=== PATIENT | male | born 1965 | race Caucasian/White ===

== ENCOUNTER 2017-11-04 09:17 | Emergency (ER) | payer BC ==
[2017-11-04] MEDS ORDERED: cefTRIAXone 2 GM in Sodium Chloride 0.9% 100 ML IV ONE ×2 (09:56→10:15)
[2017-11-04] MEDS ORDERED: Sodium Chloride 0.9% 1,000 ML IV ONE ×2 (09:56→15:46)
--- NOTE | 2017-11-04 09:57 | EDM.PDOC ---
ED HPI GENERAL MEDICAL PROBLEM - General Chief Complaint: Genitourinary Problem Stated Complaint: GROIN PAIN Time Seen by Provider: 11/04/17 09:43 Source of Information: Reports: Patient History Limitations: Reports: No Limitations - History of Present Illness INITIAL COMMENTS - FREE TEXT/NARRATIVE: 52 y/o M presents with genitourinary complaint. States he's had some difficulty initiating urinary stream for a while. Yesterday, had injury in which a jaspal hit his groin area. States pain was not severe and he didn't think much of the injury at that time. However, later that day, he noticed that he had difficulty urinating. It takes him around 10 minutes to empty his bladder. He also has had some leakage of fluid from the penis, which he states is liquid and bhatti in color. He also has had increasing pain to his genital and groin area. Penis is inflammed and swollen. He also has some lower abdominal discomfort. Pain has worsened since yesterday. He also fills mildly ill - feels weak and dizzy. No complaint of fever at home (but febrile here at triage). Denies vomiting/ diarrhea, cough, chest pain, SOB or recent illness. Sexually active with 1 female partner x years, she has no symptoms, no additional recent sexual encounters. Groin Pain Score (Numeric/FACES): 9 - Related Data Allergies Allergy/AdvReac Type Severity Reaction Status Date / Time No Known Allergies Allergy Verified 02/21/16 11:22 CDT Home Meds: Home Meds . [No Known Home Meds] 11/04/17 [History] Past Medical History Cardiovascular History: Reports: None - Past Surgical History GI Surgical History: Reports: Cholecystectomy Musculoskeletal Surgical History: Reports: Amputation, Other (See Below) Other Musculoskeletal Surgeries/Procedures:: knee surgery Social & Family History - Family History Family Medical History: Noncontributory - Tobacco Use Smoking Status *Q: Never Smoker - Caffeine Use Caffeine Use: Reports: None - Recreational Drug Use Recreational Drug Use: No ED ROS GENERAL - Review of Systems Review Of Systems: See Below Constitutional: Reports: Chills, Malaise, Weakness, Fatigue HEENT: Reports: No Symptoms Respiratory: Denies: Shortness of Breath Cardiovascular: Denies: Chest Pain Endocrine: Reports: No Symptoms GI/Abdominal: Denies: Vomiting : Reports: Discharge, Dysuria, Urinary Retention. Denies: Hematuria Musculoskeletal: Reports: No Symptoms Skin: Reports: No Symptoms Neurological: Reports: No Symptoms Psychiatric: Reports: No Symptoms Hematologic/Lymphatic: Reports: No Symptoms Immunologic: Reports: No Symptoms ED EXAM, RENAL/ - Physical Exam Exam: See Below Exam Limited By: No Limitations General Appearance: Alert, WD/WN, No Apparent Distress Eye Exam: Bilateral Eye: Normal Inspection Ears: Normal External Exam Nose: Normal Inspection Throat/Mouth: Normal Inspection, Normal Oropharynx, Normal Voice, No Airway Compromise Head: Atraumatic, Normocephalic Neck: Normal Inspection, Supple, Non-Tender, Full Range of Motion Respiratory/Chest: No Respiratory Distress, Lungs Clear, Normal Breath Sounds Cardiovascular: Normal Peripheral Pulses, Regular Rate, Rhythm, No Edema, No Murmur GI/Abdominal: Soft, Other (+suprapubic TTP) (Male) Exam: Circumcised, Other (Entire shaft of the penis is red, erythematous, very tender, mildly swollen, unable to express any discharge at this time, no scrotal TTP or swelling). No: Scrotal Swelling, Scrotum Tenderness (L), Scrotum Tenderness (R), Testicular Mass, Urethral Discharge Course - Vital Signs Last Recorded V/S: Last Vital Signs Temp 39.6 C H 11/04/17 13:52 Pulse 105 H 11/04/17 09:25 Resp 18 11/04/17 09:25 BP 157/107 H 11/04/17 09:25 Pulse Ox 94 L 11/04/17 09:25 - Orders/Labs/Meds Orders: Active Orders 24 hr Category Date Time Status CULTURE BLOOD [BC] Stat Lab 11/04/17 10:30 Received CULTURE BLOOD [BC] Stat Lab 11/04/17 10:35 Received CULTURE URINE [RM] Stat Lab 11/04/17 14:18 Received UA W/MICROSCOPIC [URIN] Stat Lab 11/04/17 10:00 Ordered Sodium Chloride 0.9% [Saline Flush] Med 11/04/17 12:54 Active 10 ml FLUSH ONETIME PRN Blood Culture x2 Reflex Set [OM.PC] Stat Oth 11/04/17 09:55 Ordered Medication Orders Sodium Chloride (Saline Flush) 10 ml FLUSH ONETIME PRN PRN Reason: IV FLUSH Last Admin: 11/04/17 13:05 Dose: 10 ml Labs: Laboratory Tests 11/04/17 11/04/17 11/04/17 Range/Units 09:40 09:40 09:56 WBC 13.46 H (4.23-9.07) K/mm3 RBC 5.77 (4.63-6.08) M/mm3 Hgb 16.8 (13.7-17.5) gm/L Hct 49.8 (40.1-51.0) % MCV 86.3 (79.0-92.2) fl MCH 29.1 (25.7-32.2) pg MCHC 33.7 (32.2-35.5) g/dl RDW Std Deviation 41.7 (35.1-43.9) fL Plt Count 151 L (163-337) K/mm3 MPV 11.1 (9.4-12.3) fl Neut % (Auto) 84.2 H (34.0-67.9) % Lymph % (Auto) 7.7 L (21.8-53.1) % [place] % (Auto) 7.4 (5.3-12.2) % Eos % (Auto) 0.1 L (0.8-7.0) Baso % (Auto) 0.5 (0.1-1.2) % Neut # (Auto) 11.32 H (1.78-5.38) K/mm3 Lymph # (Auto) 1.04 L (1.32-3.57) K/mm3 [place] # (Auto) 0.99 H (0.30-0.82) K/mm3 Eos # (Auto) 0.02 L (0.04-0.54) K/mm3 Baso # (Auto) 0.07 (0.01-0.08) K/mm3 Manual Slide Review Abnormal smear Sodium 137 (136-145) mEq/L Potassium 4.2 (3.5-5.1) mEq/L Chloride 103 (98-107) mEq/L Carbon Dioxide 23 (21-32) mEq/L Anion Gap 15.2 H (5-15) BUN 15 (7-18) mg/dL Creatinine 1.4 H (0.7-1.3) mg/dL Est Cr Clr Drug Dosing 62.28 mL/min Estimated GFR (MDRD) 53 (>60) mL/min BUN/Creatinine Ratio 10.7 L (14-18) Glucose 112 H (74-106) mg/dL Lactic Acid (0.4-2.0) mmol/L Calcium 9.0 (8.5-10.1) mg/dL Total Bilirubin 0.8 (0.2-1.0) mg/dL AST 29 (15-37) U/L ALT 49 (16-63) U/L Alkaline Phosphatase 83 (46-116) U/L Total Protein 8.3 H (6.4-8.2) g/dl Albumin 4.2 (3.4-5.0) g/dl Globulin 4.1 gm/dL Albumin/Globulin Ratio 1.0 (1-2) Urine Color (Yellow) Urine Appearance (Clear) Urine pH (5.0-8.0) Ur Specific [place] (1.005-1.030) Urine Protein (Negative) Urine Glucose (UA) (Negative) Urine Ketones (Negative) Urine Occult Blood (Negative) Urine Nitrite (Negative) Urine Bilirubin (Negative) Urine Urobilinogen (0.2-1.0) Ur Leukocyte Esterase (Negative) Urine RBC (0-5) /hpf Urine WBC (0-5) /hpf Ur Epithelial Cells (0-5) /hpf Urine Bacteria (FEW) /hpf Urine Mucus (FEW) /hpf C trachomatis DNA (PCR) Not detected N gonorrhoeae DNA (PCR) Not detected 11/04/17 11/04/17 Range/Units 10:00 10:30 WBC (4.23-9.07) K/mm3 RBC (4.63-6.08) M/mm3 Hgb (13.7-17.5) gm/L Hct (40.1-51.0) % MCV (79.0-92.2) fl MCH (25.7-32.2) pg MCHC (32.2-35.5) g/dl RDW Std Deviation (35.1-43.9) fL Plt Count (163-337) K/mm3 MPV (9.4-12.3) fl Neut % (Auto) (34.0-67.9) % Lymph % (Auto) (21.8-53.1) % [place] % (Auto) (5.3-12.2) % Eos % (Auto) (0.8-7.0) Baso % (Auto) (0.1-1.2) % Neut # (Auto) (1.78-5.38) K/mm3 Lymph # (Auto) (1.32-3.57) K/mm3 [place] # (Auto) (0.30-0.82) K/mm3 Eos # (Auto) (0.04-0.54) K/mm3 Baso # (Auto) (0.01-0.08) K/mm3 Manual Slide Review Sodium (136-145) mEq/L Potassium (3.5-5.1) mEq/L Chloride (98-107) mEq/L Carbon Dioxide (21-32) mEq/L Anion Gap (5-15) BUN (7-18) mg/dL Creatinine (0.7-1.3) mg/dL Est Cr Clr Drug Dosing mL/min Estimated GFR (MDRD) (>60) mL/min BUN/Creatinine Ratio (14-18) Glucose (74-106) mg/dL Lactic Acid 1.9 (0.4-2.0) mmol/L Calcium (8.5-10.1) mg/dL Total Bilirubin (0.2-1.0) mg/dL AST (15-37) U/L ALT (16-63) U/L Alkaline Phosphatase (46-116) U/L Total Protein (6.4-8.2) g/dl Albumin (3.4-5.0) g/dl Globulin gm/dL Albumin/Globulin Ratio (1-2) Urine Color Yellow (Yellow) Urine Appearance Clear (Clear) Urine pH 5.5 (5.0-8.0) Ur Specific [place] 1.025 (1.005-1.030) Urine Protein Negative (Negative) Urine Glucose (UA) Negative (Negative) Urine Ketones Negative (Negative) Urine Occult Blood Negative (Negative) Urine Nitrite Negative (Negative) Urine Bilirubin Negative (Negative) Urine Urobilinogen 0.2 (0.2-1.0) Ur Leukocyte Esterase 1+ H (Negative) Urine RBC 0-5 (0-5) /hpf Urine WBC 0-5 (0-5) /hpf Ur Epithelial Cells 0-5 (0-5) /hpf Urine Bacteria Not seen (FEW) /hpf Urine Mucus Not seen (FEW) /hpf C trachomatis DNA (PCR) N gonorrhoeae DNA (PCR) Meds: Medications Generic Name Dose Route Start Last Admin Trade Name Freq PRN Reason Stop Dose Admin Sodium Chloride 10 ml 11/04/17 12:54 11/04/17 13:05 Saline Flush FLUSH 10 ml ONETIME PRN Administration IV FLUSH Discontinued Medications Generic Name Dose Route Start Last Admin Trade Name Freq PRN Reason Stop Dose Admin Acetaminophen 650 mg 11/04/17 13:49 11/04/17 13:52 Tylenol PO 11/04/17 13:50 650 mg NOW ONE Administration Sodium Chloride 1,000 mls @ 1,000 mls/hr 11/04/17 09:56 11/04/17 10:40 Normal Saline IV 11/04/17 10:55 1,000 mls/hr ONETIME ONE Administration Ceftriaxone Sodium 2 gm/ 100 mls @ 200 mls/hr 11/04/17 10:15 11/04/17 10:42 Sodium Chloride IV 11/04/17 10:44 200 mls/hr ONETIME ONE Administration Piperacillin Sod/Tazobactam 100 mls @ 200 mls/hr 11/04/17 10:54 11/04/17 11: 55 Sod 4.5 gm/ Sodium Chloride IV 11/04/17 11:23 200 mls/hr ONETIME ONE Administration Iopamidol 100 ml 11/04/17 12:54 11/04/17 13:05 Isovue-300 (61%) IVPUSH 11/04/17 12:55 100 ml ONETIME ONE Administration - Re-Assessments/Exams Free Text/Narrative Re-Assessment/Exam: 11/04/17 14:19 Labs show elevated WBC at 13. He is febrile and tachycardic, meets sepsis criteria. I initially gave ceftriaxone, then added zosyn due to concern for possible deep infection to get better anaerobic coverage. His exam shows isolated penile swelling/TTP. U/S shows mild amount of edema within the penile soft tissues, no abscess or hematoma. Testicular ultrasound is unremarkable. CT a/p with contrast shows mild haziness within the subcutaneous fat in the L inguinal region presumably due to soft tissue contusion. Thickening of the subcutaneous tissues within the penis most likely due to edema. [facility] urologist called at 14:20 for advice. 11/04/17 14:[address] Pozo, urologist who agrees that patient should be admitted for IV antibiotics at a facility that has urology consultation available. Discussed with hospitalist who accepts the patient for admission. Departure - Departure Time of Disposition: 14:32 Disposition: DC/Tfer to [facility] 02 Clinical Impression: Sepsis affecting skin, Infection of penis - Discharge Information Referrals: PCP,None [Primary Care Provider] - Forms: ED Department Discharge Additional Instructions: 1. Go directly to [facility] in [place] for admission. - My Orders Last 24 Hours: My Active Orders 11/04/17 09:55 Blood Culture x2 Reflex Set [OM.PC] Stat 11/04/17 10:00 UA W/MICROSCOPIC [URIN] Stat 11/04/17 10:30 CULTURE BLOOD [BC] Stat 11/04/17 10:35 CULTURE BLOOD [BC] Stat 11/04/17 12:54 Sodium Chloride 0.9% [Saline Flush] 10 ml FLUSH ONETIME PRN 11/04/17 14:18 CULTURE URINE [RM] Stat - Assessment/Plan Last 24 Hours: My Active Orders 11/04/17 09:55 Blood Culture x2 Reflex Set [OM.PC] Stat 11/04/17 10:00 UA W/MICROSCOPIC [URIN] Stat 11/04/17 10:30 CULTURE BLOOD [BC] Stat 11/04/17 10:35 CULTURE BLOOD [BC] Stat 11/04/17 12:54 Sodium Chloride 0.9% [Saline Flush] 10 ml FLUSH ONETIME PRN 11/04/17 14:18 CULTURE URINE [RM] Stat
[2017-11-04] MEDS ORDERED: Piperacillin/Tazobactam 4.5 GM in Sodium Chloride 0.9% 100 ML IV ONE (10:54)
[2017-11-04 12:21] LABS: C. TRACHOMATIS BY PCR NOT DETECTED; N. GONORRHOEAE BY PCR NOT DETECTED
--- NOTE | 2017-11-04 12:36 | US ---
Testicular ultrasound: Multiple real-time images of the testicles were obtained. Testicles have a homogeneous ultrasound appearance. Both arterial and venous blood flow are seen within the testicles. No intratesticular abnormality is seen. Small bilateral hydroceles are noted. Left epididymal cyst is seen measuring 3.4 mm. Small lymph nodes are seen within the left inguinal region which appear normal. No focal fluid collections are seen within the visualized penile tissues to indicate abscess or hematoma. There is a mild amount of soft tissue edema being seen within the penis. Impression: 1. Mild amount of edema within the penile soft tissues. Nothing is seen to indicate abscess or hematoma. 2. Small hydroceles and small left epididymal cyst. 3. Testicular ultrasound is otherwise unremarkable. Diagnostic code #3
[2017-11-04] MEDS ORDERED: Sodium Chloride 0.9% 10 ML Syringe FLUSH PRN (12:54)
[2017-11-04] MEDS ORDERED: Iopamidol 612 MG/ML 100 ML Bottle IVPUSH ONE (12:54)
[2017-11-04] MEDS ORDERED: Acetaminophen 325 MG Tab PO ONE (13:49)
--- NOTE | 2017-11-04 14:13 | CT ---
CT abdomen and pelvis Technique: Multiple axial sections were obtained from the top the liver inferiorly through the pubic symphysis. Intravenous contrast was utilized. No oral contrast has been given. Delayed images were obtained from below the kidneys inferiorly through the pubic symphysis. Findings: Mild increased density within the subcutaneous fat is seen within the left inguinal region compatible with minimal contusion. No fluid collections are seen within the left inguinal region. No soft tissue air or other abnormality seen within the perineum or inguinal regions. There appears to be soft tissue thickening within the superficial soft tissues of the penis presumably due to edema. Visualized lung bases shows nothing acute. Liver shows no focal parenchymal abnormality. Spleen appears within normal limits. Adrenal glands contain no nodule. Kidneys show no hydronephrosis or mass. Surgical clips are seen from prior cholecystectomy. Pancreas appears normal. Aorta shows no aneurysmal dilatation. No retroperitoneal adenopathy or mesenteric abnormalities are seen. No pelvic mass or adenopathy is seen. No free fluid or inflammatory changes seen. Appendix is seen which is normal. Delayed images shows contrast within ureters and bladder. Prostate gland minimally enlarged. Bone window settings were reviewed which shows mild scattered degenerative change within the spine. Nothing acute is seen. Impression: 1. Mild haziness within the subcutaneous fat within the left inguinal region presumably due to soft tissue contusion. Thickening of the subcutaneous tissues within the penis most likely due to edema. 2. No additional abnormality is seen on CT study of the abdomen and pelvis. Diagnostic code #2
[2017-11-04 15:30] VITALS: BP 127/87
== END 2017-11-04 16:00 ==
LOC: JD.ED 09:17
DX: A41.9 Sepsis, unspecified organism (principal); N48.29 Other inflammatory disorders of penis
CPT/HCPCS: 36415; 51798; 74177; 76870; 80053; 81001; 83605; 85025; 87040; 87086; 87491; 87591; 93975; 96365; 96367; 99285; A9270; J0696; J2543; J7030; J7040; J7050; Q9967; 99284

== ENCOUNTER 2020-04-10 12:05 | Emergency (ER) | payer BC ==
[2020-04-10] MEDS ORDERED: Famotidine 20 MG/2 ML SDV IVPUSH ONE (12:15)
[2020-04-10] MEDS ORDERED: Sodium Chloride 0.9% 10 ML Syringe FLUSH PRN (12:15)
[2020-04-10] MEDS ORDERED: methylPREDNISolone Sodium Succinate 125 MG/2 ML SDV IVPUSH ONE (12:15)
[2020-04-10 12:20] VITALS: BP 138/97
[2020-04-10 13:00] VITALS: PULSE 71
--- NOTE | 2020-04-10 13:44 | EDM.PDOC ---
ED HPI GENERAL MEDICAL PROBLEM - General Chief Complaint: Allergic Reaction Stated Complaint: THROAT SWELLING Time Seen by Provider: 04/10/20 12:14 Source of Information: Reports: Patient History Limitations: Reports: No Limitations - History of Present Illness INITIAL COMMENTS - FREE TEXT/NARRATIVE: The patient presents with throat pain and swelling. This started yesterday and today it is worse. He got some chlorseptic spray and tried that a couple times. This made things worse. He has swelling of his tongue now. He does not take any medication such as an KHALIDA inhibitor. He has some trouble talking with the swelling. He has no fever, chills, cough, congestion, runny nose, chest pain, abdominal pain, nausea or vomiting. Onset: Gradual Duration: Day(s): Location: Reports: Face Severity: Moderate Improves with: Reports: None Worsens with: Reports: None Associated Symptoms: Reports: Shortness of Breath. Denies: Chest Pain, Cough, Fever/Chills, Headaches, Nausea/Vomiting - Related Data Allergies Allergy/AdvReac Type Severity Reaction Status Date / Time phenol [From Chloraseptic] Allergy Airway Verified 04/10/20 12:20 Tightness Home Meds: Home Meds predniSONE [Prednisone] 40 mg PO DAILY #10 tablet 04/10/20 [Rx] Past Medical History Cardiovascular History: Reports: None - Past Surgical History GI Surgical History: Reports: Cholecystectomy Musculoskeletal Surgical History: Reports: Amputation, Other (See Below) Other Musculoskeletal Surgeries/Procedures:: knee surgery Social & Family History - Family History Family Medical History: No Pertinent Family History - Tobacco Use Tobacco Use Status *Q: Never Tobacco User - Caffeine Use Caffeine Use: Reports: Coffee, Energy Drinks - Recreational Drug Use Recreational Drug Use: No ED ROS ALLERGIC REACTION - Review of Systems Review Of Systems: See Below Constitutional: Reports: No Symptoms HEENT: Reports: Other (swelling of his tongue and throat) Respiratory: Reports: No Symptoms Cardiovascular: Reports: No Symptoms Endocrine: Reports: No Symptoms GI/Abdominal: Reports: No Symptoms : Reports: No Symptoms ED EXAM GENERAL NO PERIP PULSE - Physical Exam Exam: See Below Exam Limited By: No Limitations General Appearance: Alert, No Apparent Distress Ears: Normal External Exam Nose: Normal Inspection Throat/Mouth: Other (Swelling of his throat and tongue with erythema of his throat) Head: Atraumatic, Normocephalic Neck: Normal Inspection Respiratory/Chest: No Respiratory Distress, Lungs Clear, Normal Breath Sounds Cardiovascular: Regular Rate, Rhythm, No Edema, No Murmur GI/Abdominal: Soft, Non-Tender, No Organomegaly, No Mass Back Exam: Normal Inspection Extremities: Normal Inspection Neurological: Alert, Oriented, No Motor/Sensory Deficits Course - Vital Signs Last Recorded V/S: Last Vital Signs Temp 98.6 F 04/10/20 12:15 Pulse 71 04/10/20 12:58 Resp 18 04/10/20 12:15 BP 138/97 H 04/10/20 12:15 Pulse Ox 93 L 04/10/20 12:58 - Orders/Labs/Meds Orders: Active Orders 24 hr Category Date Time Status Peripheral IV Care [RC] . DIRECTED Care 04/10/20 12:15 Active CULTURE STREP A CONFIRMATION [] Stat Lab 04/10/20 12:40 Results STREP SCRN A RAPID W CULT CONF [] Stat Lab 04/10/20 12:40 Results Sodium Chloride 0.9% [Saline Flush] Med 04/10/20 12:15 Active 10 ml FLUSH ASDIRECTED PRN Peripheral IV Insertion Adult [OM.PC] Routine Oth 04/10/20 12:15 Ordered Medication Orders Sodium Chloride (Saline Flush) 10 ml FLUSH ASDIRECTED PRN PRN Reason: Keep Vein Open Last Admin: 04/10/20 12:34 Dose: 10 ml Documented by: LINDA Labs: Laboratory Tests 04/10/20 Range/Units 12:24 Monoscreen Negative (NEGATIVE) Meds: Medications Generic Name Dose Route Start Last Admin Trade Name Freq PRN Reason Stop Dose Admin Sodium Chloride 10 ml 04/10/20 12:15 04/10/20 12:34 Saline Flush FLUSH 10 ml ASDIRECTED PRN Administration Keep Vein Open Discontinued Medications Generic Name Dose Route Start Last Admin Trade Name Freq PRN Reason Stop Dose Admin Famotidine 20 mg 04/10/20 12:15 04/10/20 12:34 Pepcid IVPUSH 04/10/20 12:16 20 mg ONETIME ONE Administration Methylprednisolone Sodium Succinate 125 mg 04/10/20 12:15 04/10/20 12:33 Solu-Medrol IVPUSH 04/10/20 12:16 125 mg ONETIME ONE Administration - Re-Assessments/Exams Free Text/Narrative Re-Assessment/Exam: 04/10/20 13:43 I ordered an IV saline lock, solu-medrol 125mg IV, pepcid 20mg IV, mono and strep. The mono and strep are negative. 04/10/20 13:47 He feels better and the swelling is better. He reacted to something possibly the chlorseptic. Departure - Departure Time of Disposition: 13:50 Disposition: Home, Self-Care 01 Condition: Good Clinical Impression: Allergic reaction Qualifiers: Encounter type: initial encounter Qualified Code(s): T78.40XA - Allergy, unspecified, initial encounter Angioedema Qualifiers: Encounter type: initial encounter Qualified Code(s): T78.3XXA - Angioneurotic edema, initial encounter - Discharge Information *PRESCRIPTION DRUG MONITORING PROGRAM REVIEWED*: Not Applicable *COPY OF PRESCRIPTION DRUG MONITORING REPORT IN PATIENT RAVEN: Not Applicable Prescriptions: predniSONE [Prednisone] 40 mg PO DAILY #10 tablet Referrals: Leighton Castillo MD [Primary Care Provider] - 1 Week Forms: ED Department Discharge Additional Instructions: Take the prednisone daily for 5 days. Take pepcid daily for a week. Take benadryl 50mg every 6 hours as needed for allergy symptoms. Do not use the chlorseptic any more. Please return if you are worse. Sepsis Event Note (ED) - Evaluation Sepsis Screening Result: No Definite Risk - Focused Exam Vital Signs: Vital Signs Temp Pulse Resp BP Pulse Ox 04/10/20 12:58 71 93 L 04/10/20 12:15 98.6 F 83 18 138/97 H 97 - My Orders Last 24 Hours: My Active Orders 04/10/20 12:15 Peripheral IV Care [RC] . DIRECTED Sodium Chloride 0.9% [Saline Flush] 10 ml FLUSH ASDIRECTED PRN Peripheral IV Insertion Adult [OM.PC] Routine 04/10/20 12:40 CULTURE STREP A CONFIRMATION [RM] Stat STREP SCRN A RAPID W CULT CONF [RM] Stat - Assessment/Plan Last 24 Hours: My Active Orders 04/10/20 12:15 Peripheral IV Care [RC] . DIRECTED Sodium Chloride 0.9% [Saline Flush] 10 ml FLUSH ASDIRECTED PRN Peripheral IV Insertion Adult [OM.PC] Routine 04/10/20 12:40 CULTURE STREP A CONFIRMATION [RM] Stat STREP SCRN A RAPID W CULT CONF [RM] Stat
== END 2020-04-10 14:00 | disposition home or self-care (01) ==
LOC: JD.ED 12:05
DX: T78.3XXA Angioneurotic edema, initial encounter (principal); Z91.048 Other nonmedicinal substance allergy status
CPT/HCPCS: 36415; 86308; 87081; 87430; 96374; 96375; 99284; J2930; J3490

== ENCOUNTER 2022-01-05 11:45 | Emergency (ER) | payer BC | END 2022-01-05 12:30 | LOC: JD.ED 11:45 | DX: Z53.21 Procedure and treatment not carried out due to patient leaving prior to being seen by health care provider (principal) ==